=== PATIENT | female | born 1990 | race Hispanic/Latino ===

== ENCOUNTER 2017-08-18 14:24 | Emergency (ER) | payer OTHER ==
[~2017-08-18] VITALS: Ht 167.6 cm; Wt 56.7 kg
[2017-08-18] MEDS ORDERED: IBUPROFEN 600 MG TAB PO STA (15:47)
[2017-08-18 17:16] VITALS: BP 118/64
== END 2017-08-18 16:00 | disposition home or self-care (01) ==
LOC: FSED 14:24
DX: S96.912A Strain of unspecified muscle and tendon at ankle and foot level, left foot, initial encounter (principal); Y93.44 Activity, trampolining
CPT/HCPCS: 99283